=== PATIENT | male | born 1960 | race Caucasian/White ===

== ENCOUNTER 2024-12-11 16:53 | Inpatient (IN) | payer OTHER, SELFPAY ==
--- NOTE | 2024-12-11 18:15 | RAD REPORT ---
EXAMINATION: ONE VIEW CHEST XR CLINICAL INDICATION: Male, 63 years old.,CHEST PAIN TECHNIQUE: Frontal chest projection is submitted. Examination is limited by patient positioning and t echnique. COMPARISON: No prior exam. FINDINGS: Patchy right perihilar and basal opacification. Mild left retrocardiac opacification. Blunting of the left costophrenic angle bilaterally. No pneumothorax or sizable effusion. The heart is normal in size. Mediastinal contours are unremarkable. IMPRESSION: Bilateral opacities more pronounced on the right with blunting of the costophrenic angle, may reflect changes of pulmonary edema with trace effusion, however underlying pneumonia cannot be excluded.
[2024-12-11 18:33] LABS: Absolute Basophils 0.1 K/uL (0-0.5); Absolute Eosinophils 0.2 K/uL (0-0.5); Absolute Lymphocytes (CBC) 1.7 K/uL (0.7-4.9); Absolute Monocytes 0.7 K/uL (0.1-1.3); Absolute Neutrophil 6.6 K/uL (1.8-8.0); Basophils % 0.6 % (0-1.3); Eosinophils % 1.7 % (0-4.4); Hematocrit 51.7 % (39.6-49.0); Hemoglobin 17.3 g/dL (13.6-17.9); MCH 31.9 pg (27.0-35.0); MCHC 33.4 g/dL (32.0-36.0); MCV 95.4 fL (80-100); MPV 7.9 fL (7.6-11.3); Neutrophils % 71.7 % (41.7-73.7); Nucleated Red Blood Cells % 0.1 % (0-0); Platelets 344 thou/uL (152-406); RBC Red Blood Cell Count 5.42 M/uL (4.33-5.43)
[2024-12-11 18:52] LABS: Albumin 3.3 g/dL (3.4-5.0); Albumin/Globulin Ratio 0.9 (1.1-1.8); Anion Gap 9.1 mEq/L (5.0-15.0); Bilirubin Direct 0.2 mg/dL (0-0.2); Bilirubin Indirect, Calculated 0.4 mg/dL (0.2-0.8); Bilirubin Total 0.6 mg/dL (0.2-1.0); Globulin 3.6 g/dL (2.3-3.5); Potassium 4.1 mEq/L (3.5-5.1); Protein, Total 6.9 g/dL (6.4-8.2); Troponin High Sensitivity 20.8 pg/mL (<58.9)
--- NOTE | 2024-12-11 20:16 | EDPHYS ---
Physician Documentation [facility] Name: Nahs Wheatley Age: 63 yrs Sex: Male : 1960 Arrival Date: 12/11/2024 Time: 16:53 Bed 20 Private MD: ED Physician Reyes Mcgee HPI: 12/11 20:42 This 63 yrs old Male presents to ER via Ambulatory with complaints of Abnormal Lab rt Results. 20:42 Patient presents to the ED with dyspnea, orthopnea, dyspnea on exertion for the past 3 rt days. The patient reportedly to an urgent care today, sent for an abnormal EKG. Denies chest pain, acute complaints, symptoms are moderate severity, no other aggravating alleviating factors.. Historical: - Allergies: 17:08 No Known Allergies; hb - Home Meds: 17:08 None [Active]; hb - PMHx: 17:08 Ulcerative Colitis; hb - PSHx: 17:08 None; hb - Immunization history:: Adult Immunizations up to date. - Infectious Disease History:: Denies. - Social history:: Smoking status: Patient denies any tobacco usage or history of. ROS: 20:42 Constitutional: Negative for fever, chills, and weight loss, Cardiovascular: Negative rt for chest pain, palpitations, and edema, Abdomen/GI: Negative for abdominal pain, nausea, vomiting, diarrhea, and constipation, MS/Extremity: Negative for injury and deformity, Skin: Negative for injury, rash, and discoloration, Neuro: Negative for headache, weakness, numbness, tingling, and seizure, 20:42 Respiratory: Positive for cough, dyspnea on exertion, shortness of breath, Exam: 20:42 Constitutional: This is a well developed, well nourished patient who is awake, alert, rt and in no acute distress. Head/Face: Normocephalic, atraumatic. Chest/axilla: Normal chest wall appearance and motion. Nontender with no deformity. No lesions are appreciated. Cardiovascular: Regular rate and rhythm with a normal S1 and S2. No gallops, murmurs, or rubs. Normal PMI, no JVD. No pulse deficits. Abdomen/GI: Soft, non-tender, with normal bowel sounds. No distension or tympany. No guarding or rebound. No evidence of tenderness throughout. Skin: Warm, dry with normal turgor. Normal color with no rashes, no lesions, and no evidence of cellulitis. MS/ Extremity: Pulses equal, no cyanosis. Neurovascular intact. Full, normal range of motion. Neuro: Awake and alert, GCS 15, oriented to person, place, time, and situation. Cranial nerves II-XII grossly intact. Motor strength 5/5 in all extremities. Sensory grossly intact. Cerebellar exam normal. Normal gait. 20:42 ECG was reviewed by the Attending Physician. 20:42 Respiratory: Bibasilar crackles, mild respiratory distress, Vital Signs: 17:07 BP 114 / 108; Pulse 108; Resp 24; Temp 97.8; Pulse Ox 98% ; Weight 90.72 kg; Height 5 hb ft. 10 in. ; Pain 0/10; 20:00 BP 139 / 91; Pulse 110; Resp 26; Pulse Ox 96% on R/A; me1 21:00 BP 145 / 94; Pulse 109; Resp 21; Pulse Ox 98% ; me1 22:00 BP 140 / 92; Pulse 85; Resp 20; Pulse Ox 99% ; me1 23:00 BP 153 / 101; Pulse 109; Resp 20; Pulse Ox 93% ; me1 23:52 BP 137 / 103; Pulse 109; Resp 20; Pulse Ox 92% on R/A; me1 17:07 Body Mass Index 28.70 (90.72 kg, 177.8 cm) hb 17:07 Pain Scale: Adult hb MDM: 17:09 Medical Screening Exam initiated rt 20:42 Differential Diagnosis CHF, pneumonia. Data reviewed: vital signs, nurses notes, lab rt test result(s), EKG, radiologic studies. Consideration of Admission/Observation Patient was admitted/placed on observation. Management of patient was discussed with the following: Hospitalist: Agrees to admit. I considered the following discharge prescriptions or medication management in the emergency department Medications were administered in the Emergency Department. See MAR. Independent interpretation of the following test(s) in the Emergency Department X-Ray: My interpretation is Pulmonary edema seen on interpretation of x-ray images. Test considered but Not performed: CT: Low suspicion for PE, CT angiogram not dictated. Care significantly affected by the following chronic conditions: Ulcerative colitis. Counseling: I had a detailed discussion with the patient and/or guardian regarding the historical points, exam findings, and any diagnostic results supporting the discharge/admit diagnosis, lab results, radiology results, the need for further work-up and treatment in the hospital. Response to treatment: the patient's symptoms have mildly improved after treatment. 12/11 17:13 Order name: Basic Metabolic Panel; Complete Time: 19:19 rt 12/11 17:13 Order name: CBC with Diff; Complete Time: 19:19 rt 12/11 17:13 Order name: LFT's; Complete Time: 19:19 rt 12/11 17:13 Order name: NT PRO-BNP; Complete Time: 19:19 rt 12/11 17:13 Order name: Troponin HS; Complete Time: 19:19 rt 12/11 17:13 Order name: D-Dimer; Complete Time: 19:19 rt 12/11 21:43 Order name: Basic Metabolic Panel EDMS 12/11 21:43 Order name: Troponin High Sensitivity EDMS 12/11 21:48 Order name: Procalcitonin EDMS 12/11 17:13 Order name: XRAY Chest (1 view); Complete Time: 18:21 rt 12/11 21:43 Order name: Echo with Doppler EDMS 12/11 21:43 Order name: CONS Physician Consult EDMS 12/11 17:13 Order name: Cardiac monitoring; Complete Time: 20:00 rt 12/11 17:13 Order name: EKG - Nurse/Tech; Complete Time: 20:00 rt 12/11 17:13 Order name: IV Saline Lock; Complete Time: 18:31 rt 12/11 17:13 Order name: Labs collected and sent; Complete Time: 18:31 rt 12/11 17:13 Order name: O2 Per Protocol; Complete Time: 18:31 rt 12/11 17:13 Order name: O2 Sat Monitoring; Complete Time: 18:31 rt EC:42 Rate is 113 beats/min. Rhythm is regular, Sinus tachycardia with No ectopy. QRS [place] is rt Normal. SC interval is normal. QRS interval is normal. QT interval is normal. No Q waves. No ST changes noted. Interpreted by me. Administered Medications: 20:20 Drug: Furosemide IVP 40 mg IVP once; give over 2 minutes Route: IVP; Site: left forearm;me1 21:39 Follow up: Response: No adverse reaction me1 Disposition Summary: 12/11/24 20:15 Hospitalization Ordered Notes: Hospitalization Status: Observation rt Provider: Maximino Bucio rt Condition: Stable rt Problem: new rt Symptoms: are unchanged rt Bed/Room Type: Standard rt Location: Telemetry/MedSurg (Inpatient)(12/12/24 12:19) [facility] Room Assignment: 203(12/12/24 12:19) [facility] Diagnosis - Acute pulmonary edema rt Forms: - Medication Reconciliation Form rt - SBAR form rt - Leadership Thank You Letter rt Signatures: Dispatcher [employer] EDMS Paula Aguayo, RN RN Reyes Mcgee MD MD rt [facility] Marybeth Boland RN RN tn1 Brigida Zhu Corrections: (The following items were deleted from the chart) 17:14 17:14 BASIC METABOLIC PANEL+C.LAB.BRZ ordered. EDMS EDMS 17:14 17:14 CBC+H.LAB.BRZ ordered. EDMS EDMS 17:14 17:14 HEPATIC FUNCTION+C.LAB.BRZ ordered. EDMS EDMS 17:14 17:14 PROBNP+C.LAB.BRZ ordered. EDMS EDMS 17:14 17:14 Troponin High Sensitivity+C.LAB.BRZ ordered. EDMS EDMS 17:14 17:14 D-DIMER+COAG.LAB.BRZ ordered. EDMS EDMS 17:14 17:14 Chest Single View+RAD.RAD.BRZ ordered. EDND EDMS 12/12 01:37 12/11 20:15 Telemetry/MedSurg (observation) rt vk 12/12 01:37 12/11 20:15 rt vk 12/12 12:19 01:37 [facility] ER HOLD vk 6 12:19 01:37 ERHOLD- vk 6
--- NOTE | 2024-12-11 20:16 | ER ---
Nurse's Notes [facility] Name: Nash Wheatley Age: 63 yrs Sex: Male : 1960 Arrival Date: 12/11/2024 Time: 16:53 Bed 20 Private MD: Diagnosis: Acute pulmonary edema Presentation: 12/11 17:07 Chief complaint: Cough, congestion, malaise, and SOB x 2-3 days. Sent from urgent care hb for abnormal EKG. Coronavirus screen: Client presents with at least one sign or symptom that may indicate coronavirus-19. Provider contacted for isolation considerations. Ebola Screen: No symptoms or risks identified at this time. Initial Sepsis Screen: Does the patient meet any 2 criteria? No. Patient's initial sepsis screen is negative. Does the patient have a suspected source of infection? No. Patient's initial sepsis screen is negative. Risk Assessment: Do you want to hurt yourself or someone else? Patient reports no desire to harm self or others. Onset of symptoms was December 11, 2024. 17:07 Method Of Arrival: Ambulatory hb 17:07 Acuity: KEVIN 3 hb Historical: - Allergies: 17:08 No Known Allergies; hb - Home Meds: 17:08 None [Active]; hb - PMHx: 17:08 Ulcerative Colitis; hb - PSHx: 17:08 None; hb - Immunization history:: Adult Immunizations up to date. - Infectious Disease History:: Denies. - Social history:: Smoking status: Patient denies any tobacco usage or history of. Screenin:40 [facility] ED Fall Risk Assessment (Adult) History of falling in the last 3 months, me1 including since admission No falls in past 3 months (0 pts) Confusion or Disorientation No (0 pts) Intoxicated or Sedated No (0 pts) Impaired Gait No (0 pts) Mobility Assist Device Used No (0 pt) Altered Elimination No (0 pt) Score/Fall Risk Level 0 - 2 = Low Risk Maintained a safe environment, Provided non-skid footwear, Hourly rounding (assess needs \T\ fall precautionary measures) done. Abuse screen: Denies threats or abuse. Nutritional screening: No deficits noted. Tuberculosis screening: No symptoms or risk factors identified. Assessment: 19:40 General: Appears well groomed, well developed, well nourished, Behavior is calm, me1 cooperative, appropriate for age, Reports Cough, congestion, malaise, and SOB x 2-3 days. Sent from urgent care for abnormal EKG. Pain: Denies pain. Neuro: Level of Consciousness is awake, alert, obeys commands, Oriented to person, place, time, situation, Appropriate for age. Cardiovascular: Patient's skin is warm and dry. Respiratory: Reports shortness of breath cough that is since 2-3 days ago Airway is patent Respiratory effort is even, labored, Respiratory pattern is regular, tachypnea. GI: No signs and/or symptoms were reported involving the gastrointestinal system. : No signs and/or symptoms were reported regarding the genitourinary system. EENT: No signs and/or symptoms were reported regarding the EENT system. Derm: Skin is intact, is healthy with good turgor, Skin is pink, warm \T\ dry. Musculoskeletal: No signs and/or symptoms reported regarding the musculoskeletal system. Vital Signs: 17:07 BP 114 / 108; Pulse 108; Resp 24; Temp 97.8; Pulse Ox 98% ; Weight 90.72 kg; Height 5 hb ft. 10 in. ; Pain 0/10; 20:00 BP 139 / 91; Pulse 110; Resp 26; Pulse Ox 96% on R/A; me1 21:00 BP 145 / 94; Pulse 109; Resp 21; Pulse Ox 98% ; me1 22:00 BP 140 / 92; Pulse 85; Resp 20; Pulse Ox 99% ; me1 23:00 BP 153 / 101; Pulse 109; Resp 20; Pulse Ox 93% ; me1 23:52 BP 137 / 103; Pulse 109; Resp 20; Pulse Ox 92% on R/A; me1 17:07 Body Mass Index 28.70 (90.72 kg, 177.8 cm) hb 17:07 Pain Scale: Adult hb ED Course: 16:57 Patient arrived in ED. al6 16:57 Reyes Mcgee MD is Attending Physician. rt 17:08 Triage completed. hb 17:09 Arm band placed on. hb 17:39 XRAY Chest (1 view) In Process Unspecified. EDMS 18:30 Initial lab(s) drawn, by me, sent to lab. Inserted saline lock: 18 gauge in left zm forearm, using aseptic technique. Blood collected. Flushed with 10 mL NS. 18:31 Basic Metabolic Panel Sent. zm 18:31 CBC with Diff Sent. zm 18:31 LFT's Sent. zm 18:31 NT PRO-BNP Sent. zm 18:31 Troponin HS Sent. zm 18:31 D-Dimer Sent. zm 19:40 Patient has correct armband on for positive identification. Bed in low position. Call me1 light in reach. Side rails up X 1. Provided Education on: POC. Verbalized understanding.. Client placed on continuous cardiac and pulse oximetry monitoring. NIBP monitoring applied. federal judicial law clerk on. Pulse ox on. NIBP on. 19:40 No provider procedures requiring assistance completed. me1 19:48 Marybeth Boland, RN is Primary Nurse. me1 20:00 EKG done, by ED staff, reviewed by Reyes Mcgee MD. me1 20:14 Maximino Bucio MD is Hospitalizing Provider. rt 12/12 05:19 Procalcitonin Sent. vk 05:19 Basic Metabolic Panel Sent. vk 05:19 Troponin High Sensitivity Sent. vk Administered Medications: 12/11 20:20 Drug: Furosemide IVP 40 mg IVP once; give over 2 minutes Route: IVP; Site: left forearm;me1 21:39 Follow up: Response: No adverse reaction me1 Medication: 19:40 VIS not applicable for this client. me1 Output: 21:39 Urine: 950ml (Voided); Total: 950ml. me1 22:55 Urine: 1100ml (Voided); Total: 2050ml. me1 Outcome: 20:15 Decision to Hospitalize by Provider. rt 12/12 13:23 Patient left the ED. 1 Signatures: Dispatcher [employer] EDMS Paula Aguayo RN RN Cassandra Dove RN RN 1 Diane Lora Ryan, MD MD rt Marybeth Boland, AGNES RN me1 Brigida Zhu vk January Sahu Corrections: (The following items were deleted from the chart) 12/11 20:40 17:07 Chief complaint: Cough, congestion, malaise, and SOB x 2-3 days. Sent from urgent me1 care for abnormal EKG. hb
[2024-12-11] MEDS ORDERED: FUROSEMIDE 40 MG/4 ML VIAL ONE (20:18)
[2024-12-11] MEDS ORDERED: ZOLPIDEM TARTRATE 5 MG TABLET PO PRN (21:35)
[2024-12-11] MEDS ORDERED: ACETAMINOPHEN 500 MG TAB PO PRN (21:35)
--- NOTE | 2024-12-11 21:47 | P.HP ---
Patient History Date of Service: 12/12/24 History of Present Illness: Is a 63-year-old male with a past medical history of ulcerative colitis presenting with shortness of breath for the last 3 to 4 days. Associated symptoms include cough and orthopnea. He denies fevers. He states he feels like someone's been sitting on his chest. He took an [place]. He denies any tobacco use or illicit drug use. 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 He denies any chest pain. Workup in the ED revealed likely pulmonary edema in both lungs alongside elevated BNP. He has been recommended for hospital admission at this time. Allergies No Known Allergies Allergy (Unverified 12/11/24 23:07) Review of Systems General: Unremarkable Eyes: Unremarkable ENT: Unremarkable Respiratory: Shortness of Breath Cardiovascular: Orthopnea Gastrointestinal: Unremarkable Genitourinary: Unremarkable Musculoskeletal: Unremarkable Integumentary: Unremarkable Neurological: Unremarkable Physical Examination - Physical Exam General: Alert, In no apparent distress HEENT: Atraumatic, Normocephalic Neck: Supple Respiratory: Clear to auscultation bilaterally Cardiovascular: No edema, Normal pulses Capillary refill: <2 Seconds Gastrointestinal: Normal bowel sounds Musculoskeletal: No clubbing Integumentary: No rashes Neurological: Normal speech Lymphatics: No axilla or inguinal lymphadenopathy - Studies Laboratory Data (last 24 hrs) 12/11/24 12/11/24 18:27 18:27 WBC 9.20 Hgb 17.3 Hct 51.7 H Plt Count 344 Sodium 142 Potassium 4.1 BUN 27 H Creatinine 1.87 H Glucose 86 Total Bilirubin 0.6 AST 35 ALT 68 H Alkaline Phosphatase 51 Assessment and Plan - Plan Acute heart failure exacerbation Ulcerative colitis Elevated creatinine Start Lasix IV, spironolactone, Coreg, strict I's and O, daily weights Guideline directed medical therapy Cardiology consult Echocardiogram pending D-dimer within normal limits, negative troponin Telemetry Chest x-ray reviewed DVT prophylaxis with heparin - Advance Directives Does patient have a Living Will: No Does patient have a Durable POA for Healthcare: No
[2024-12-12] MEDS: HEPARIN 5000 UNIT/ML 1 ML VIAL SQ SCH (01:00)
[2024-12-12 05:48] LABS: Anion Gap 11.5 mEq/L (5.0-15.0); Potassium 3.5 mEq/L (3.5-5.1)
[2024-12-12] MEDS: carvediloL 3.125 MG TAB PO SCH ×2 (06:00→08:00)
[2024-12-12] MEDS: SPIRONOLACTONE 25 MG TABLET PO SCH (09:00)
[2024-12-12] MEDS: FUROSEMIDE 40 MG/4 ML VIAL IV SCH (09:00)
[2024-12-12] MEDS ORDERED: carvediloL 6.25 MG TAB ONE (09:05)
[2024-12-12] MEDS ORDERED: FUROSEMIDE 40 MG/4 ML VIAL ONE (09:05)
[2024-12-12] MEDS: METOPROLOL TARTRATE 5 MG/5 ML INJ IV STA (15:24)
[2024-12-12] MEDS: carvediloL 12.5 MG TAB PO SCH (17:16)
[2024-12-13] MEDS: POTASSIUM 25 MEQ EFFERV TAB PO ONE (09:23)
[2024-12-13 14:10] LABS: Absolute Basophils 0.1 K/uL (0-0.5); Absolute Eosinophils 0.5 K/uL (0-0.5); Absolute Lymphocytes (CBC) 1.8 K/uL (0.7-4.9); Absolute Monocytes 0.9 K/uL (0.1-1.3); Absolute Neutrophil 5.6 K/uL (1.8-8.0); Eosinophils % 5.3 % (0-4.4); Hematocrit 50.7 % (39.6-49.0); Hemoglobin 16.9 g/dL (13.6-17.9); Lymphocytes % 20.3 % (15.3-44.8); MCH 31.4 pg (27.0-35.0); MCHC 33.3 g/dL (32.0-36.0); MCV 94.3 fL (80-100); MPV 8.2 fL (7.6-11.3); Monocytes % 10.6 % (3.3-12.3); Neutrophils % 62.8 % (41.7-73.7); Nucleated Red Blood Cells % 0.2 % (0-0); Platelets 387 thou/uL (152-406); RBC Red Blood Cell Count 5.37 M/uL (4.33-5.43); Red Cell Distribution Width 13.6 % (12.1-15.2)
[2024-12-13 14:35] LABS: Albumin 3.1 g/dL (3.4-5.0); Anion Gap 11.9 mEq/L (5.0-15.0); Bilirubin Total 0.5 mg/dL (0.2-1.0); Globulin 3.2 g/dL (2.3-3.5); Magnesium 2.3 mg/dL (1.6-2.4); Potassium 3.9 mEq/L (3.5-5.1); Protein, Total 6.3 g/dL (6.4-8.2); Troponin High Sensitivity 18.6 pg/mL (<58.9)
--- NOTE | 2024-12-14 11:43 | P.PN ---
Subjective Date of Service: 12/12/24 Patient continues to do well. Patient respiratory status is somewhat better. He states he can lay down a little flatter. Echocardiogram completed. Will be reviewed with steam presser. Concern for cardiomyopathy. Patient denies any alcohol history or any drug abuse. He does have a family history of heart failure. Review of Systems 10-point ROS is otherwise unremarkable Physical Examination - Vital Signs Temperature: 97.5 F Blood Pressure: 105/66 Pulse: 91 Respirations: 24 Pulse Ox (%): 92 - Physical Exam General: Alert, In no apparent distress, Oriented x3 Respiratory: Clear to auscultation bilaterally, Normal air movement Cardiovascular: Regular rate/rhythm, Normal S1 S2, No murmurs Gastrointestinal: Normal bowel sounds, Soft and benign, Non-distended, No tenderness Musculoskeletal: No clubbing, No swelling, No tenderness Neurological: Sensation intact, Cranial nerves 3-12 intact - Studies Medications List Reviewed: Yes Assessment & Plan - Problems (Diagnosis) (1) HFrEF (heart failure with reduced ejection fraction) Current Visit: Yes Status: Acute - Plan PLAN: 1. Echocardiogram pending 2. Start entresto 3. Continue with carvedilol 4. Cardiology consultation pending 5. Continue with diuresis; almost compensated 6. Strict I's and O's 7. Repeat CXR 8. Daily weights 9. Education regarding diet and treatment of congestive heart failure Discharge Plan: Home Plan to discharge in: Greater than 2 days - Advance Directives Does patient have a Living Will: No Does patient have a Durable POA for Healthcare: No - Code Status/Comfort Care Code Status Assessed: Yes Code Status: Full Code Critical Care: No Time Spent Managing PTS Care (In Minutes): 35
--- NOTE | 2024-12-14 12:19 | P.PN ---
Date of Service: 12/13/24 Subjective Pt doing well with no new complaints; still gets SOB with minimal exertion but overall feeling better Physical Examination - Vital Signs reviewed - Physical Exam General: Alert, In no apparent distress, Oriented x3 Respiratory: Clear to auscultation bilaterally, Normal air movement Cardiovascular: Regular rate/rhythm, Normal S1 S2, No murmurs Gastrointestinal: Normal bowel sounds, Soft and benign, Non-distended, No tenderness Musculoskeletal: No clubbing, No swelling, No tenderness Neurological: no focal deficits Assessment & Plan - Problems (Diagnosis) (1) HFrEF (heart failure with reduced ejection fraction) Current Visit: Yes Status: Acute - Plan Continue with plan of care and metoprolol: 1. Echocardiogram pending 2. Started entresto 3. Continue with carvedilol 4. Cardiology consultation pending 5. Continue with diuresis; almost compensated 6. Strict I's and O's 7. Repeat CXR 8. Daily weights 9. Education regarding diet and treatment of congestive heart failure Discharge Plan: Home Plan to discharge in: Greater than 2 days - Advance Directives Does patient have a Living Will: No Does patient have a Durable POA for Healthcare: No - Code Status/Comfort Care Code Status Assessed: Yes Code Status: Full Code Critical Care: No Time Spent Managing PTS Care (In Minutes): 25
--- NOTE | 2024-12-14 12:22 | P.PN ---
Date of Service: 12/14/24 Subjective Pt denies any new complaints; improving Physical Examination - Vital Signs reviewed - Physical Exam General: Alert, In no apparent distress, Oriented x3 Respiratory: Clear bilaterally Cardiovascular: Regular rate/rhythm, Normal S1 S2, No murmurs Gastrointestinal: Normal bowel sounds, Soft and benign, Non-distended, No tenderness Musculoskeletal: No clubbing, No swelling, No tenderness Neurological: no focal deficits Assessment & Plan - Problems (Diagnosis) (1) HFrEF (heart failure with reduced ejection fraction) Current Visit: Yes Status: Acute - Plan Continue with plan of care and metoprolol: 1. Echocardiogram pending 2. Started entresto today; BP soft so wiol 3. Continue with carvedilol 4. Cardiology consultation pending 5. Continue with diuresis; almost compensated 6. Strict I's and O's 7. Repeat CXR 8. Daily weights 9. Education regarding diet and treatment of congestive heart failure Discharge Plan: Home Plan to discharge in: Greater than 2 days - Advance Directives Does patient have a Living Will: No Does patient have a Durable POA for Healthcare: No - Code Status/Comfort Care Code Status Assessed: Yes Code Status: Full Code Critical Care: No Time Spent Managing PTS Care (In Minutes): 25
[2024-12-14] MEDS: METOPROLOL TARTRATE 5 MG/5 ML INJ IV STA (14:22)
[2024-12-14] MEDS: FUROSEMIDE 20 MG TABLET PO SCH (17:40)
[2024-12-14] MEDS: SACUBITRIL/VALSARTAN 24/26 MG TAB PO SCH (21:40)
[2024-12-15 02:15] VITALS: BMI 27.7
--- NOTE | 2024-12-15 07:03 | ECHO ---
HEIGHT: 5 ft 10 in WEIGHT: 193 lb 8 oz DATE OF STUDY: 12/12/[address]: Maximino Bucio MD 2-DIMENSIONAL: YES M.MODE: YES DOPPLER: YES COLOR FLOW: YES TDS: PORTABLE: YES DEFINITY: BUBBLE STUDY: DIAGNOSIS: ACUTE HEART FAILURE EXACERBATION CARDIAC HISTORY: CATHERIZATION: NO SURGERY: NO PROSTHETIC VALVE: NO PACEMAKER: NO MEASUREMENTS (cm) DIASTOLIC (NORMALS) SYSTOLIC (NORMALS) IVSd 1.2 (0.6-1.2) LA Diam 3.2 (1.9-4.0) LVEF 25-30% LVIDd 6.1 (3.5-5.7) LVIDs 5.3 (2.0-3.5) %FS 13% LVPWd 1.2 (0.6-1.2) Ao Diam 3.1 (2.0-3.7) 2 DIMENSIONAL ASSESSMENT: RIGHT ATRIUM: NORMAL LEFT ATRIUM: NORMAL RIGHT VENTRICLE: NORMAL LEFT VENTRICLE: DILATED TRICUSPID VALVE: TRACE TRICUSPID REGURGITATION MITRAL VALVE: MILD MITRAL REGURGITATION PULMONIC VALVE: NORMAL AORTIC VALVE: NORMAL PERICARDIAL EFFUSION: TRIVIVAL AORTIC ROOT: NORMAL LEFT VENTRICULAR WALL MOTION: SEVERE GLOBAL HYPOKINESIS DOPPLER/COLOR FLOW: SEE BELOW COMMENTS: 1. SEVERELY DEPRESSED LEFT VENTRICULAR EJECTION FRACTION 25-30% 2. SEVERE GLOBAL HYPOKINESIS 3. MILD MITRAL REGURGITATION 4. SEVERELY RESTRICTIVE DIASTOLIC DYSFUNCTION 5. TRIVIVAL PERICARDIAL EFFUSION TECHNOLOGIST: SINDY PIRES
[2024-12-15 07:55] LABS: Absolute Basophils 0.1 K/uL (0-0.5); Absolute Eosinophils 0.7 K/uL (0-0.5); Absolute Lymphocytes (CBC) 2.8 K/uL (0.7-4.9); Absolute Monocytes 0.8 K/uL (0.1-1.3); Absolute Neutrophil 4.7 K/uL (1.8-8.0); Basophils % 1.2 % (0-1.3); Eosinophils % 7.2 % (0-4.4); Hematocrit 51.6 % (39.6-49.0); Lymphocytes % 31.2 % (15.3-44.8); MCH 31.1 pg (27.0-35.0); MCHC 32.9 g/dL (32.0-36.0); MCV 94.3 fL (80-100); Monocytes % 8.9 % (3.3-12.3); Neutrophils % 51.5 % (41.7-73.7); Nucleated Red Blood Cells % 0.1 % (0-0); Platelets 349 thou/uL (152-406); RBC Red Blood Cell Count 5.47 M/uL (4.33-5.43); Red Cell Distribution Width 13.8 % (12.1-15.2)
[2024-12-15 08:06] LABS: Albumin 3.1 g/dL (3.4-5.0); Anion Gap 9.3 mEq/L (5.0-15.0); Bilirubin Total 0.4 mg/dL (0.2-1.0); Globulin 3.2 g/dL (2.3-3.5); Magnesium 2.5 mg/dL (1.6-2.4); Potassium 3.3 mEq/L (3.5-5.1); Protein, Total 6.3 g/dL (6.4-8.2); Troponin High Sensitivity 16.9 pg/mL (<58.9)
[2024-12-15] MEDS: FUROSEMIDE 40 MG TABLET PO SCH (09:05)
[2024-12-15] MEDS ORDERED: HEPARIN 10,000 UNIT/10 ML VIAL IV ONE (10:54)
[2024-12-15] MEDS ORDERED: ATROPINE SULF 1 MG/10 ML SYR IV ONE (10:54)
[2024-12-15] MEDS ORDERED: HEPA 1000U/500MLS 2,000 UNIT/1,000 ML BAG IV ONE (10:54)
[2024-12-15] MEDS ORDERED: LIDOCAINE 1% 20 ML MDV ONE (10:54)
[2024-12-15] MEDS ORDERED: TICAGRELOR 90 MG TABLET PO ONE (10:55)
[2024-12-15] MEDS ORDERED: CLOPIDOGREL 75 MG TABLET ONE (10:55)
[2024-12-15] MEDS ORDERED: ASPIRIN 325 MG TAB ONE (10:55)
[2024-12-15] MEDS ORDERED: HEPARIN 5000 UNIT/ML 1 ML VIAL ONE (10:55)
[2024-12-15] MEDS ORDERED: MIDAZOLAM HCL 2 MG/2 ML INJ ONE (11:25)
[2024-12-15] MEDS ORDERED: FENTANYL CITR 100 MCG/2 ML ONE (11:26)
[2024-12-15] MEDS ORDERED: NA CHLORIDE 0.9% 500 ML ONE (11:29)
[2024-12-15] MEDS ORDERED: NALOXONE 0.4 MG/ML VIAL ONE (11:36)
[2024-12-15] MEDS ORDERED: FLUMAZENIL 0.1 MG/ML (5 mL VIAL) IV ONE (11:36)
[2024-12-15] MEDS ORDERED: Phenylephrine HCl 10 MG/ML 1 ML VIAL ONE (11:57)
[2024-12-15] MEDS ORDERED: METHYLPREDNISOLONE 125 MG INJ ONE (11:58)
--- NOTE | 2024-12-15 12:34 | P.CNS ---
Date of Consult: 12/15/24 Chief Complaint: Heart failure History of Present Illness: Patient with no significant PMH presented with worsening SOB, RICE, denies any other cardiac symptoms. Allergies No Known Allergies Allergy (Unverified 12/11/24 23:07) Home medications list reviewed: Yes - Social History Alcohol use: Yes CD- Drugs: No Caffeine use: Yes Place of Residence: Home Review of Systems 10-point ROS is otherwise unremarkable Physical Examination Temp Pulse Resp BP Pulse Ox 97.4 F 88 20 121/83 92 12/15/24 08:00 12/15/24 09:06 12/15/24 08:00 12/15/24 09:06 12/15/24 08:00 General: Alert, In no apparent distress HEENT: Atraumatic, PERRLA, Mucous membr. moist/pink, EOMI, Sclerae nonicteric Neck: Supple, 2+ carotid pulse no bruit, No LAD, Without JVD or thyroid abnormality Respiratory: Clear to auscultation bilaterally, Normal air movement Cardiovascular: Regular rate/rhythm, Normal S1 S2 Gastrointestinal: Normal bowel sounds, No tenderness Musculoskeletal: No tenderness Integumentary: No rashes Neurological: Normal gait, Normal speech, Normal tone, Normal affect Lymphatics: No axilla or inguinal lymphadenopathy - Problems (1) Acute systolic heart failure Current Visit: Yes Status: Acute Plan: coronary angiogram shows mild CAD, non ischemic in nature continue coreg 12.5 mg po bid continue aldactone 25 mg daily add lisinopril 5 mg daily lower lasix to 20 mg po bid for 1 week then 20 mg daily outpatient follow up with cardiology.
[2024-12-15 14:30] VITALS: O2SAT 100
[2024-12-15 16:39] VITALS: BP 106/65; TEMP 97.7
--- NOTE | 2024-12-16 11:20 | EKG ---
Test Date: 2024-12-11 Test Time: 19:58:18 Leasing Sales Consultant: MEASUREMENT RESULTS: Intervals: Rate: 113 SC: 170 QRSD: 98 QT: 358 QTc: 491 [place]: P: 85 SC: 170 QRS: 114 T: 55 INTERPRETIVE STATEMENTS: Sinus tachycardia Biatrial enlargement Anterior infarct, age undetermined Abnormal ECG No previous ECG available for comparison Electronically Signed On 12-16-24 11:05:16 CDT by Narciso Welch
--- NOTE | 2024-12-16 12:10 | OP ---
Date of Procedure: 12/15/2024 Surgeon: Narciso Welch Procedures Performed: Selective coronary angiogram, left heart catheterization. Indication For Procedure: Unstable angina. Complications: None. Estimated Blood Loss: Less than 50 cc. Access: Right radial, closed by TR band. Sedation Time: 20 minutes with 1 of Versed and 50 of fentanyl. Description Of Procedure: After risks, benefits, and alternatives were explained to the patient, the patient agreed to proceed with procedure and signed informed consent. The patient was brought back to the cardiac cath lab manager, prepped and draped in sterile fashion. Time-out was performed. Sedation was admini stered. Next, right radial access was obtained using ultrasound-guided micropuncture technique. Tig er 4 catheter was advanced over J-wire to the LV cavity. LVEDP was obtained. Pullback did not show any gradient. Same catheter was used for selective angiogram of the left and right coronary systems. At the end of procedure, catheter was removed over a J-wire. Sheath was removed. TR band was appl ied. Hemostasis was achieved. The patient was moved back to recovery in stable condition. Findings: 1. Left main: Normal. 2. LAD: Diffuse mild luminal irregularities. 3. Left circumflex: Mild luminal irregularities. 4. RCA: Mild luminal irregularities. 5. LVEDP: 22 mmHg. Assessment And Plan: 1. Mild coronary artery disease. 2. Mild elevated filling pressure. The plan is to continue medical management. BUNNY/ORLY Voice ID: [id number] Report ID: [id number]
--- NOTE | 2024-12-19 12:23 | P.DS ---
Discharge Date: 12/15/24 Disposition: ROUTINE DISCHARGE Discharge Condition: GOOD Reason for Admission: Heart failure - Problems (1) HFrEF (heart failure with reduced ejection fraction) Status: Acute Brief History of Present Illness: Is a 63-year-old male with a past medical history of ulcerative colitis presenting with shortness of breath for the last 3 to 4 days. Associated symptoms include cough and orthopnea. He denies fevers. He states he feels like someone's been sitting on his chest. He took an Ella-Edmond. He denies any tobacco use or illicit drug use. He states he was working for the [employer] but got laid off recently. He denies any chest pain. Workup in the ED revealed likely pulmonary edema in both lungs alongside elevated BNP. He has been recommended for hospital admission at this time. Hospital Course: Patient workup included cardiac catheterization which showed minimal coronary artery disease. No intervention was necessary. Patient is echo revealed ejection fraction of 35-40%. Patient was treated with cardiac medications to improve mortality. Patient will be on diuretics, Aldactone, carvedilol, Entresto, and patient will follow-up with cardiology and possibly a Heart failure Clinic. At this time patient is stable for discharge home with outpatient follow-up. Vital Signs/Physical Exam: Temp Pulse Resp BP Pulse Ox 97.7 F 92 H 20 106/65 95 12/15/24 16:00 12/15/24 16:00 12/15/24 16:00 12/15/24 16:00 12/15/24 16:00 General: Alert, In no apparent distress, Oriented x3 Laboratory Data at Discharge: WBC 9.00 thou/uL (4.3-10.9) 12/15/24 07:32 Hgb 17.0 g/dL (13.6-17.9) 12/15/24 07:32 Hct 51.6 % (39.6-49.0) H 12/15/24 07:32 Plt Count 349 thou/uL (152-406) 12/15/24 07:32 Sodium 138 mEq/L (136-145) 12/15/24 07:32 Potassium 3.3 mEq/L (3.5-5.1) L 12/15/24 07:32 BUN 25 mg/dL (7-18) H 12/15/24 07:32 Creatinine 1.32 mg/dL (0.70-1.30) H 12/15/24 07:32 Glucose 97 mg/dL (74-106) 12/15/24 07:32 Magnesium 2.5 mg/dL (1.6-2.4) H 12/15/24 07:32 Total Bilirubin 0.4 mg/dL (0.2-1.0) 12/15/24 07:32 AST 27 U/L (15-37) 12/15/24 07:32 ALT 46 U/L (16-61) 12/15/24 07:32 Alkaline Phosphatase 47 U/L (45-117) 12/15/24 07:32 Home Medications: Furosemide [Lasix*] 20 mg PO DAILY AT SUPPER #30 tab 12/15/24 Sacubitril/Valsartan [Entresto 24 mg-26 mg Tablet] 0.5 tab PO BID #30 tab 0 12/15/24 Spironolactone [Aldactone*] 25 mg PO DAILY #30 tab 12/15/24 carvediloL [Coreg*] 12.5 mg PO BID 6AM 6PM #60 tab 12/15/24 New Medications: Spironolactone [Aldactone*] 25 mg PO DAILY #30 tab carvediloL [Coreg*] 12.5 mg PO BID 6AM 6PM #60 tab Sacubitril/Valsartan [Entresto 24 mg-26 mg Tablet] 0.5 tab PO BID #30 tab Furosemide [Lasix*] 20 mg PO DAILY AT SUPPER #30 tab Physician Discharge Instructions: -DC IV and DC home -Follow-up with PCP in 1 to 2 weeks -Follow-up with Cardiology in 1 to 2 weeks -Please call Dr. Sanabria at [phone] if any questions regarding hospital stay -Please call nursing station at [phone] if any nursing or medication questions -Return to the emergency room if symptoms worsen Diet: AHA Activity: Fall precautions Followup: NONE,NONE [Primary Care Provider] - Time spent managing pt's care (in minutes): 35
== END 2024-12-15 17:04 | disposition home or self-care (01) | DRG 287 ==
LOC: ER 16:53 → ERHOLD 21:35 → 2ND 12-12 12:35 → OBSVTOIN 12-13 10:13
PROVIDERS: ADMIT Family Medicine; ATTEND Hospitalist
PROC: B2111ZZ Fluoroscopy of Multiple Coronary Arteries using Low Osmolar Contrast (ICD-10-PCS; principal; 2024-12-15)
PROC: 4A023N7 Measurement of Cardiac Sampling and Pressure, Left Heart, Percutaneous Approach (ICD-10-PCS; 2024-12-15)
DX: I50.21 Acute systolic (congestive) heart failure (principal); K51.90 Ulcerative colitis, unspecified, without complications; I25.10 Atherosclerotic heart disease of native coronary artery without angina pectoris; Z79.02 Long term (current) use of antithrombotics/antiplatelets; Z79.899 Other long term (current) drug therapy
CPT/HCPCS: 36415; 71045; 76937; 80048; 80053; 80076; 83735; 83880; 84145; 84156; 84484; 85025; 85379; 93005; 93306; 93458; 96374; 99152; 99153; 99285; C1893; G0378; J0461; J1644; J1940; J2003; J2250; J2310; J2371; J2919; J3010; J7040; Q9966